=== PATIENT | female | born 1935 | race Caucasian/White ===

== ENCOUNTER 2020-10-13 10:51 | Emergency (ER) | payer MEDICARE ==
[2020-10-13] MEDS ORDERED: Morphine 4 MG/ML VIAL ONE ×2 (11:11→13:45)
[2020-10-13 12:11] LABS: Bilirubin Negative (Negative); Blood, Urine 2+ (Negative); Clarity Clear (Clear); Glucose, Urine (Dipstick) Greater than 1000 mg/dL (Negative); Ketone, Urine 10 mg/dL (Negative); Leukocyte Negative Leu/uL (Negative); Nitrite Negative (Negative); Protein, Urine (Dipstick) Negative (Neg-Trace); Specific Gravity, Urine 1.014 (1.002-1.036); Squamous Epithelial 0-3 HPF (0-3); Urobilinogen Normal mg/dL (Less than 2); WBC/HPF 0-3 HPF (0-3)
[2020-10-13 12:14] LABS: Bacteria/HPF 1+ HPF (None Seen)
[2020-10-13 13:12] LABS: #Lymphocytes 1.3 thou/uL (1.20-3.40); #Monocytes 0.4 thou/uL (0.11-0.59); #Neutrophils 6.1 thou/uL (1.40-6.50); %Basophils 0.3 % (0.0-1.0); %Eosinophils 0.1 % (0.0-10.0); %Lymphocytes 16.5 % (21.0-51.0); %Monocytes 5.4 % (0.0-10.0); %Neutrophils 77.7 % (42.0-75.0); Hemoglobin 14.5 g/dL (12.0-16.0); Mean Corpuscular Hemoglobin 33.4 pg (27.0-31.0); Mean Corpuscular Volume 98.4 fL (78.0-98.0); RBC Distribution Width 12.3 % (11.5-14.5); Red Blood Cell (RBC) Count 4.35 mill/uL (4.20-5.40); White Blood Cell (WBC) Count 7.8 thou/uL (4.8-10.8)
[2020-10-13 13:29] LABS: ALT (SGPT) 32 U/L (8-55); AST (SGOT) 28 U/L (5-34); Albumin 3.4 g/dL (3.4-4.8); Alkaline Phosphatase 143 U/L (40-110); Anion Gap 16 mmol/L (10-20); BUN (Urea Nitrogen) 17 mg/dL (9.8-20.1); Bilirubin, Total 1.5 mg/dL (0.2-1.2); Calc. Creatinine Clearance 0 mL/min (70-130); Calcium 8.3 mg/dL (7.8-10.44); Carbon Dioxide 19 mmol/L (23-31); Globulin 2.7 g/dL (2.4-3.5); Glucose 240 mg/dL (83-110); Lipase 13 U/L (8-78); Protein, Total 6.1 g/dL (5.8-8.1)
[2020-10-13 13:30] LABS: Chloride 109 mmol/L (98-107); Potassium 5.1 mmol/L (3.5-5.1); Sodium 139 mmol/L (136-145)
[2020-10-13 13:40] LABS: MDiff Complete? YES; Mean Platelet Volume 9.7 fL (7.4-10.4); Platelet Count 64 thou/uL (130-400); Platelet Morphology Comment Appears Decreased; Polychromasia SLIGHT = 2-3 cells (100X) (0-2/hpf)
[2020-10-13] MEDS ORDERED: Ondansetron PF 4 MG/2 ML Vial ONE (13:46)
[2020-10-13] MEDS ORDERED: Ketorolac Tromethamine 30 MG/ML VIAL ONE (13:46)
== END 2020-10-13 15:22 | disposition home or self-care (01) ==
LOC: ERS 10:51
DX: N13.2 Hydronephrosis with renal and ureteral calculous obstruction (principal); E11.9 Type 2 diabetes mellitus without complications; R11.2 Nausea with vomiting, unspecified; Z79.4 Long term (current) use of insulin
CPT/HCPCS: 36415; 74176; 80053; 81003; 81015; 83690; 85025; 96374; 96375; 96376; J1885; J2270; J2405

== ENCOUNTER 2020-10-21 10:14 | Outpatient (CLI) | payer MEDICARE ==
[2020-10-21 11:47] LABS: Hemoglobin 14.2 g/dL (12.0-15.5); Mean Corpuscular Hemoglobin 32.5 pg (27.0-33.0); Mean Corpuscular Volume 95.7 fl (81.6-98.3); Mean Platelet Volume 12.3 fl (7.4-10.4); Platelet Count 101 10x3/uL (150-450); RBC Distribution Width 12.8 % (11.5-14.5); Red Blood Cell (RBC) Count 4.37 10x6/uL (3.90-5.03); White Blood Cell (WBC) Count 4.9 10x3/uL (3.5-10.5)
[2020-10-21 12:02] LABS: INR-International Normal Ratio 1.2; PTT 26.2 sec (22.0-33.0); Prothrombin Time 12.8 sec (9.5-12.1)
[2020-10-21 12:12] LABS: Bilirubin Neg (Negative); Blood, Urine 10 (Negative); Clarity Clear (Clear); Glucose, Urine (Dipstick) Normal (Negative); Ketone, Urine Negative (Negative); Leukocyte 25 (Negative); Nitrite Negative (Negative); Protein, Urine (Dipstick) Negative (Neg-Trace); Specific Gravity, Urine 1.015 (1.002-1.036)
[2020-10-21 12:15] LABS: Anion Gap 13 mmol/L (10-20); BUN (Urea Nitrogen) 13 mg/dL (9.8-20.1); Calc. Creatinine Clearance 0 mL/min (70-130); Carbon Dioxide 27 mmol/L (23-31); Chloride 106 mmol/L (98-107); Glucose 151 mg/dL (83-110); Potassium 4.9 mmol/L (3.5-5.1); Sodium 141 mmol/L (136-145)
[2020-10-21 12:40] LABS: RBC/HPF 0-3 HPF (0-3); Squamous Epithelial 0-3 HPF (0-3); WBC/HPF 0-3 HPF (0-3)
[2020-10-21 12:41] LABS: Bacteria/HPF Rare-Few HPF (None Seen)
[2020-10-21 22:36] LABS: SARS-CoV-2 PCR by NAA Not Detected (NotDetected)
== END 2020-10-21 10:15 | disposition home or self-care (01) ==
LOC: LABBT 10:14
PROVIDERS: ATTEND Urology
DX: Z01.818 Encounter for other preprocedural examination (principal); Z20.822 Contact with and (suspected) exposure to COVID-19; N13.2 Hydronephrosis with renal and ureteral calculous obstruction
CPT/HCPCS: 80048; 81001; 85027; 85610; 85730; 87086; 93005; U0003; U0005; 87635; 93010

== ENCOUNTER 2020-10-23 06:22 | Day surgery (SDC) | payer MEDICARE ==
[2020-10-22 11:53] VITALS: BMI 25.9
[2020-10-23] MEDS ORDERED: Levofloxacin 500 mg/D5W 100 ml Premix Bag ONE (06:55)
[2020-10-23] MEDS ORDERED: Iothalamate Meglumine 60% 50 ML VIAL FS ONE (08:17)
[2020-10-23] MEDS ORDERED: B & O ONE (08:17)
[2020-10-23] MEDS ORDERED: Fentanyl 100 MCG/2 ML VIAL ONE (08:20)
[2020-10-23] MEDS ORDERED: Dexamethasone 20 MG/5 ML VIAL ONE (08:46)
[2020-10-23] MEDS ORDERED: PROPOFOL 200 MG/20 ML VIAL ONE (08:46)
[2020-10-23] MEDS ORDERED: PHENYLEPHRINE-NS 100 MCG/ML 10 ML SYRINGE ONE (08:46)
[2020-10-23] MEDS ORDERED: Ondansetron PF 4 MG/2 ML Vial ONE (08:46)
[2020-10-23] MEDS ORDERED: Morphine 2 MG/ML VIAL ONE (10:37)
[2020-10-23] MEDS ORDERED: hydrALAZINE 20 MG/ML VIAL ONE (11:41)
[2020-11-02 18:14] LABS: CA Oxalate Dihydrate 20 % (.); CA Oxalate Monohydrate 80 % (.); Color Brown (.); Stone Weight 4 mg (.)
== END 2020-10-23 12:15 | disposition home or self-care (01) ==
LOC: SDC 06:22
PROVIDERS: ATTEND Urology
PROC: 0TC38ZZ Extirpation of Matter from Right Kidney Pelvis, Via Natural or Artificial Opening Endoscopic (ICD-10-PCS; principal; 2020-10-23)
PROC: 0T768DZ Dilation of Right Ureter with Intraluminal Device, Via Natural or Artificial Opening Endoscopic (ICD-10-PCS; 2020-10-23)
DX: N13.2 Hydronephrosis with renal and ureteral calculous obstruction (principal); E89.0 Postprocedural hypothyroidism; E11.9 Type 2 diabetes mellitus without complications; Z79.4 Long term (current) use of insulin; Z79.899 Other long term (current) drug therapy; Z88.5 Allergy status to narcotic agent; Z88.8 Allergy status to other drugs, medicaments and biological substances; Z95.5 Presence of coronary angioplasty implant and graft
CPT/HCPCS: 52332; 52352; 74420; 82365; 82962; 88300; J2270; Q9961; 36416; J0360; J1100; J1956; J2405; J2704; J3010

== ENCOUNTER 2021-02-14 01:52 | Emergency (ER) | payer MEDICARE | END 2021-02-14 05:10 | disposition home or self-care (01) | LOC: ERS 01:52 | DX: E11.9 Type 2 diabetes mellitus without complications (principal); Z79.4 Long term (current) use of insulin | CPT/HCPCS: 36416; 99283 ==

== ENCOUNTER 2021-07-02 14:20 | Inpatient (IN) | payer MEDICARE ==
[~2021-07-02 14:20] MED LIST: Iopamidol-370 76% 500 ML 1 ML ONE
[2021-07-02 15:28] LABS: #Monocytes 0.5 thou/uL (0.11-0.59); #Neutrophils 2.8 thou/uL (1.40-6.50); %Basophils 0.3 % (0.0-1.0); %Eosinophils 0.8 % (0.0-10.0); %Lymphocytes 36.9 % (21.0-51.0); %Monocytes 9.6 % (0.0-10.0); %Neutrophils 52.4 % (42.0-75.0); Hemoglobin 13.8 g/dL (12.0-16.0); Mean Corpuscular HGB CONC 34.5 g/dL (32.0-36.0); Mean Corpuscular Volume 98.6 fL (78.0-98.0); Mean Platelet Volume 9.6 fL (7.4-10.4); Platelet Count 79 thou/uL (130-400); RBC Distribution Width 12.7 % (11.5-14.5); Red Blood Cell (RBC) Count 4.05 mill/uL (4.20-5.40); White Blood Cell (WBC) Count 5.3 thou/uL (4.8-10.8)
[2021-07-02 15:48] LABS: ALT (SGPT) 42 U/L (8-55); AST (SGOT) 49 U/L (5-34); Albumin 3.3 g/dL (3.4-4.8); Alkaline Phosphatase 229 U/L (40-110); Anion Gap 13 mmol/L (10-20); BUN (Urea Nitrogen) 14 mg/dL (9.8-20.1); Bilirubin, Total 0.7 mg/dL (0.2-1.2); Calc. Creatinine Clearance 0 mL/min (70-130); Calcium 9.1 mg/dL (7.8-10.44); Carbon Dioxide 21 mmol/L (23-31); Chloride 110 mmol/L (98-107); Globulin 3.1 g/dL (2.4-3.5); Glucose 200 mg/dL (83-110); Protein, Total 6.4 g/dL (5.8-8.1); Sodium 140 mmol/L (136-145)
[2021-07-02] MEDS ORDERED: cefTRIAXone\\ROCEPHIN 2 GM VIAL ONE (16:23)
[2021-07-02] MEDS ORDERED: Azithromycin 500 MG VIAL ONE (16:23)
[2021-07-02 17:17] LABS: SARS-CoV-2 NAA Rapid Test Not Detected (NotDetected)
[2021-07-02 18:11] LABS: Troponin I Less than 0.010 ng/mL (< 0.028)
[2021-07-02] MEDS ORDERED: Dextrose 50% Abboject 50 ML SYRINGE SLOW IVP PRN (18:34)
[2021-07-02] MEDS ORDERED: Dextrose 5% in Water 1,000 ML IV PRN (18:34)
[2021-07-02] MEDS ORDERED: Ondansetron ODT 4 MG TAB PO PRN (18:36)
[2021-07-02] MEDS ORDERED: Senokot S 8.6-50 MG TAB PO PRN (18:36)
[2021-07-02] MEDS ORDERED: Acetaminophen 650 MG Suppository PR PRN (18:36)
[2021-07-02] MEDS ORDERED: Albuterol Sulfate 2.5 mg/3 ml Neb NEB PRN (18:43)
[2021-07-02 18:48] LABS: Lactic Acid 2.9 mmol/L (0.5-2.2)
[2021-07-02 21:54] LABS: Troponin I Less than 0.010 ng/mL (< 0.028)
[2021-07-02] MEDS: Enoxaparin Sodium 40 MG/0.4 ML SYRINGE SC SCH (21:54)
[2021-07-02] MEDS: Sodium Chloride 0.9% 1,000 ML IV SCH (21:55)
[2021-07-02] MEDS: Acetaminophen 325 MG TAB PO PRN (21:56)
[2021-07-02] MEDS: Famotidine 20 MG TAB PO SCH (21:56)
[2021-07-02] MEDS: Benzonatate 100 MG CAP PO PRN (21:56)
[2021-07-02] MEDS: guaiFENesin 200 MG TAB PO PRN (21:57)
[2021-07-03 01:25] LABS: Lactic Acid 2.4 mmol/L (0.5-2.2)
[2021-07-03] MEDS: Sodium Chloride 0.9% 1,000 ML IV SCH ×3 (03:51→18:09)
[2021-07-03] MEDS: Acetaminophen 325 MG TAB PO PRN (04:36)
[2021-07-03] MEDS: guaiFENesin 200 MG TAB PO PRN (04:36)
[2021-07-03 05:19] LABS: ALT (SGPT) 35 U/L (8-55); AST (SGOT) 35 U/L (5-34); Albumin 2.8 g/dL (3.4-4.8); Alkaline Phosphatase 163 U/L (40-110); Anion Gap 8 mmol/L (10-20); BUN (Urea Nitrogen) 11 mg/dL (9.8-20.1); Bilirubin, Total 0.5 mg/dL (0.2-1.2); Calc. Creatinine Clearance 62 mL/min (70-130); Calcium 8.1 mg/dL (7.8-10.44); Carbon Dioxide 23 mmol/L (23-31); Chloride 112 mmol/L (98-107); Globulin 2.6 g/dL (2.4-3.5); Glucose 159 mg/dL (83-110); Potassium 4.3 mmol/L (3.5-5.1); Protein, Total 5.4 g/dL (5.8-8.1); Sodium 139 mmol/L (136-145)
[2021-07-03 05:36] LABS: #Lymphocytes 1.3 thou/uL (1.20-3.40); #Monocytes 0.4 thou/uL (0.11-0.59); #Neutrophils 2.3 thou/uL (1.40-6.50); %Basophils 0.2 % (0.0-1.0); %Lymphocytes 32.1 % (21.0-51.0); %Monocytes 8.8 % (0.0-10.0); %Neutrophils 57.9 % (42.0-75.0); Hemoglobin 11.9 g/dL (12.0-16.0); Mean Corpuscular Hemoglobin 33.4 pg (27.0-31.0); Mean Corpuscular Volume 98.5 fL (78.0-98.0); Mean Platelet Volume 10.1 fL (7.4-10.4); Platelet Count 64 thou/uL (130-400); RBC Distribution Width 12.9 % (11.5-14.5); Red Blood Cell (RBC) Count 3.56 mill/uL (4.20-5.40); White Blood Cell (WBC) Count 4.1 thou/uL (4.8-10.8)
[2021-07-03] MEDS: hydrALAZINE 20 MG/ML VIAL SLOW IVP PRN (06:00)
[2021-07-03] MEDS: Enoxaparin Sodium 40 MG/0.4 ML SYRINGE SC SCH (09:33)
[2021-07-03] MEDS: Famotidine 20 MG TAB PO SCH ×2 (09:33→21:30)
[2021-07-03 10:04] LABS: Bacteria/HPF None Seen HPF (None Seen); Bilirubin Negative (Negative); Blood, Urine Negative (Negative); Clarity Clear (Clear); Glucose, Urine (Dipstick) Normal (Negative); Ketone, Urine Negative (Negative); Leukocyte Negative Leu/uL (Negative); Nitrite Negative (Negative); Protein, Urine (Dipstick) Negative (Neg-Trace); RBC/HPF None Seen HPF (0-3); Specific Gravity, Urine 1.014 (1.002-1.036); Squamous Epithelial None Seen HPF (0-3); Urobilinogen Normal mg/dL (Less than 2); WBC/HPF 0-3 HPF (0-3)
[2021-07-03] MEDS: Gabapentin 400 MG CAP PO SCH ×2 (14:27→21:30)
[2021-07-03 15:44] LABS: Lactic Acid 2.6 mmol/L (0.5-2.2)
[2021-07-03] MEDS ORDERED: Sodium Chloride 0.9% 500 ML IV SCH (16:00)
[2021-07-03] MEDS: cefTRIAXone\\ROCEPHIN 1 GM in Sodium Chloride 0.9% 100 ML IVPB SCH (16:10)
[2021-07-03] MEDS: Azithromycin 500 MG in Sodium Chloride 0.9% 250 ML 250 ML IVPB SCH (17:06)
[2021-07-04 05:16] LABS: #Eosinphils 0.1 thou/uL (0.0-0.7); #Lymphocytes 1.1 thou/uL (1.20-3.40); #Monocytes 0.4 thou/uL (0.11-0.59); #Neutrophils 1.8 thou/uL (1.40-6.50); %Basophils 0.3 % (0.0-1.0); %Eosinophils 1.6 % (0.0-10.0); %Lymphocytes 32.8 % (21.0-51.0); %Monocytes 11.5 % (0.0-10.0); %Neutrophils 53.9 % (42.0-75.0); Hemoglobin 11.4 g/dL (12.0-16.0); Mean Corpuscular HGB CONC 34.3 g/dL (32.0-36.0); Mean Corpuscular Hemoglobin 34.1 pg (27.0-31.0); Mean Corpuscular Volume 99.3 fL (78.0-98.0); Mean Platelet Volume 9.7 fL (7.4-10.4); Platelet Count 60 thou/uL (130-400); RBC Distribution Width 12.8 % (11.5-14.5); Red Blood Cell (RBC) Count 3.34 mill/uL (4.20-5.40); White Blood Cell (WBC) Count 3.3 thou/uL (4.8-10.8)
[2021-07-04 05:32] LABS: Anion Gap 8 mmol/L (10-20); BUN (Urea Nitrogen) 11 mg/dL (9.8-20.1); Calc. Creatinine Clearance 74 mL/min (70-130); Calcium 7.8 mg/dL (7.8-10.44); Carbon Dioxide 23 mmol/L (23-31); Chloride 115 mmol/L (98-107); Glucose 145 mg/dL (83-110); Sodium 142 mmol/L (136-145)
[2021-07-04] MEDS ORDERED: Lisinopril 5 MG TAB PO SCH (09:00)
[2021-07-04] MEDS: Lantus 1000 UNITS/10 ML VIAL SC SCH (09:09)
[2021-07-04] MEDS: Gabapentin 400 MG CAP PO SCH ×3 (09:11→20:11)
[2021-07-04] MEDS: Amlodipine 5 MG TAB PO SCH (09:14)
[2021-07-04] MEDS: Famotidine 20 MG TAB PO SCH ×2 (09:14→21:33)
[2021-07-04 09:53] LABS: Reticulocyte Count 2.7 % (0.5-1.5)
[2021-07-04 10:12] LABS: Iron Binding Capacity, Total 229 mcg/dL (265-497)
[2021-07-04 10:13] LABS: Iron 109 ug/dL (50-170)
[2021-07-04 10:38] LABS: Ferritin 151.71 ng/mL (10-291)
[2021-07-04] MEDS: cefTRIAXone\\ROCEPHIN 1 GM in Sodium Chloride 0.9% 100 ML IVPB SCH (15:29)
[2021-07-04] MEDS: Azithromycin 500 MG in Sodium Chloride 0.9% 250 ML 250 ML IVPB SCH (17:39)
[2021-07-04] MEDS: hydrALAZINE 20 MG/ML VIAL SLOW IVP PRN (17:39)
[2021-07-04] MEDS: Acetaminophen 325 MG TAB PO PRN (20:11)
[2021-07-04] MEDS: Benzonatate 100 MG CAP PO PRN (20:12)
[2021-07-04] MEDS: guaiFENesin ER 600 MG TAB PO SCH (20:12)
[2021-07-05 06:03] LABS: ALT (SGPT) 29 U/L (8-55); AST (SGOT) 35 U/L (5-34); Albumin 2.7 g/dL (3.4-4.8); Alkaline Phosphatase 193 U/L (40-110); Bilirubin, Direct 0.2 mg/dL (0.1-0.3); Bilirubin, Total 0.5 mg/dL (0.2-1.2); Protein, Total 5.7 g/dL (5.8-8.1)
[2021-07-05 06:04] LABS: Anion Gap 11 mmol/L (10-20); BUN (Urea Nitrogen) 13 mg/dL (9.8-20.1); Calc. Creatinine Clearance 68 mL/min (70-130); Calcium 8.5 mg/dL (7.8-10.44); Carbon Dioxide 22 mmol/L (23-31); Chloride 108 mmol/L (98-107); Glucose 164 mg/dL (83-110); Potassium 4.7 mmol/L (3.5-5.1); Sodium 136 mmol/L (136-145)
[2021-07-05 06:24] LABS: Hemoglobin 12.8 g/dL (12.0-16.0); Mean Corpuscular HGB CONC 34.4 g/dL (32.0-36.0); Mean Corpuscular Hemoglobin 33.9 pg (27.0-31.0); Mean Corpuscular Volume 98.4 fL (78.0-98.0); Mean Platelet Volume 8.4 fL (7.4-10.4); Platelet Count 55 thou/uL (130-400); RBC Distribution Width 12.8 % (11.5-14.5); Red Blood Cell (RBC) Count 3.77 mill/uL (4.20-5.40); White Blood Cell (WBC) Count 5.8 thou/uL (4.8-10.8)
[2021-07-05] MEDS: hydrALAZINE 20 MG/ML VIAL SLOW IVP PRN (07:44)
[2021-07-05] MEDS: Ondansetron PF 4 MG/2 ML Vial IVP PRN ×3 (09:38→21:24)
[2021-07-05] MEDS: Famotidine 20 MG TAB PO SCH ×2 (09:39→22:31)
[2021-07-05] MEDS: Amlodipine 5 MG TAB PO SCH (09:39)
[2021-07-05] MEDS: Gabapentin 400 MG CAP PO SCH ×3 (09:39→22:31)
[2021-07-05] MEDS: Lantus 1000 UNITS/10 ML VIAL SC SCH (09:40)
[2021-07-05] MEDS: guaiFENesin ER 600 MG TAB PO SCH ×3 (09:40→22:32)
[2021-07-05] MEDS: Benzonatate 100 MG CAP PO PRN (09:44)
[2021-07-05] MEDS: Acetaminophen 325 MG TAB PO PRN (09:51)
[2021-07-05] MEDS ORDERED: Amlodipine 5 MG TAB PO SCH (10:00)
[2021-07-05 12:19] LABS: MDiff Complete? YES
[2021-07-05 12:20] LABS: Band 3 % (5-11); Lymphocytes 30 % (21-51); Monocytes 13 % (0-10); Neutrophil 54 % (42-75); Platelet Morphology Comment Appears Decreased; RBC Morphology Normal
[2021-07-05] MEDS: cefTRIAXone\\ROCEPHIN 1 GM in Sodium Chloride 0.9% 100 ML IVPB SCH (15:36)
[2021-07-05] MEDS ORDERED: hydrALAZINE 25 MG TAB PO SCH (17:00)
[2021-07-05] MEDS: Azithromycin 500 MG in Sodium Chloride 0.9% 250 ML 250 ML IVPB SCH (19:21)
[2021-07-05] MEDS: hydrALAZINE 20 MG/ML VIAL SLOW IVP SCH (20:44)
[2021-07-05] MEDS ORDERED: Ketorolac Tromethamine 30 MG/ML VIAL IVP SCH (21:30)
[2021-07-05] MEDS ORDERED: Morphine 4 MG/ML VIAL SLOW IVP SCH (21:45)
[2021-07-05 22:05] LABS: Troponin I Less than 0.010 ng/mL (< 0.028)
[2021-07-05] MEDS ORDERED: Pantoprazole 40 MG VIAL IVP SCH (22:15)
[2021-07-05] MEDS ORDERED: diphenhydrAMINE 50 MG/ML VIAL ONE (22:24)
[2021-07-06] MEDS ORDERED: Metoprolol Tartrate 5 MG/5 ML VIAL IVP SCH (01:00)
[2021-07-06] MEDS: hydrALAZINE 20 MG/ML VIAL SLOW IVP SCH ×4 (09:49→22:25)
[2021-07-06] MEDS: Amlodipine 10 MG TAB PO SCH (09:49)
[2021-07-06] MEDS: Famotidine 20 MG TAB PO SCH (09:49)
[2021-07-06] MEDS: Gabapentin 400 MG CAP PO SCH (09:49)
[2021-07-06] MEDS: Lantus 1000 UNITS/10 ML VIAL SC SCH (11:57)
[2021-07-06] MEDS: Acetaminophen 325 MG TAB PO PRN ×3 (12:14→21:00)
[2021-07-06] MEDS: Benzonatate 100 MG CAP PO PRN ×3 (12:15→21:01)
[2021-07-06] MEDS: Lidocaine 5% Patch TD SCH (14:26)
[2021-07-06] MEDS: Gabapentin 100 MG CAP PO SCH ×2 (14:26→21:00)
[2021-07-06 14:53] LABS: Anion Gap 12 mmol/L (10-20); BUN (Urea Nitrogen) 23 mg/dL (9.8-20.1); Calc. Creatinine Clearance 51 mL/min (70-130); Calcium 8.9 mg/dL (7.8-10.44); Carbon Dioxide 22 mmol/L (23-31); Chloride 106 mmol/L (98-107); Glucose 228 mg/dL (83-110); Magnesium 1.9 mg/dL (1.6-2.6); Potassium 3.9 mmol/L (3.5-5.1); Sodium 136 mmol/L (136-145)
[2021-07-06] MEDS: cefTRIAXone\\ROCEPHIN 1 GM in Sodium Chloride 0.9% 100 ML IVPB SCH (15:54)
[2021-07-06] MEDS: HumaLOG 300 UNITS/3 ML VIAL SC PRN ×2 (16:47→22:07)
[2021-07-06] MEDS ORDERED: Promethazine HCl 12.5 MG in Sodium Chloride 0.9% 50 ML IVPB PRN (17:36)
[2021-07-06] MEDS: Ondansetron HCl/PF 8 MG in Sodium Chloride 0.9% 50 ML IVPB SCH (21:00)
[2021-07-06] MEDS ORDERED: Ondansetron PF 4 MG/2 ML Vial IVP SCH (21:00)
[2021-07-07] MEDS: Transdermal Patch Removal TOP SCH (03:30)
[2021-07-07] MEDS: HumaLOG 300 UNITS/3 ML VIAL SC PRN ×3 (06:17→21:00)
[2021-07-07] MEDS: hydrALAZINE 20 MG/ML VIAL SLOW IVP SCH ×4 (10:11→20:58)
[2021-07-07] MEDS: Gabapentin 100 MG CAP PO SCH (10:11)
[2021-07-07] MEDS: Pantoprazole 40 MG VIAL IVP SCH (10:11)
[2021-07-07] MEDS: Amlodipine 10 MG TAB PO SCH (10:11)
[2021-07-07 10:17] LABS: #Eosinphils 0.1 thou/uL (0.0-0.7); #Lymphocytes 1.4 thou/uL (1.20-3.40); #Monocytes 0.6 thou/uL (0.11-0.59); #Neutrophils 3.5 thou/uL (1.40-6.50); %Basophils 0.6 % (0.0-1.0); %Eosinophils 1.5 % (0.0-10.0); %Lymphocytes 24.6 % (21.0-51.0); %Neutrophils 62.2 % (42.0-75.0); Hemoglobin 12.1 g/dL (12.0-16.0); Mean Corpuscular HGB CONC 33.8 g/dL (32.0-36.0); Mean Corpuscular Hemoglobin 33.5 pg (27.0-31.0); Mean Corpuscular Volume 99.1 fL (78.0-98.0); Mean Platelet Volume 10.1 fL (7.4-10.4); Platelet Count 76 thou/uL (130-400); RBC Distribution Width 13.3 % (11.5-14.5); Red Blood Cell (RBC) Count 3.63 mill/uL (4.20-5.40); White Blood Cell (WBC) Count 5.7 thou/uL (4.8-10.8)
[2021-07-07 10:21] LABS: Anion Gap 13 mmol/L (10-20); BUN (Urea Nitrogen) 21 mg/dL (9.8-20.1); Calc. Creatinine Clearance 58 mL/min (70-130); Calcium 8.6 mg/dL (7.8-10.44); Carbon Dioxide 24 mmol/L (23-31); Chloride 106 mmol/L (98-107); Glucose 177 mg/dL (83-110); Potassium 4.3 mmol/L (3.5-5.1); Sodium 139 mmol/L (136-145)
[2021-07-07] MEDS: Ondansetron HCl/PF 8 MG in Sodium Chloride 0.9% 50 ML IVPB SCH ×2 (10:33→20:52)
[2021-07-07] MEDS ORDERED: predniSONE 20 MG TAB PO SCH (11:00)
[2021-07-07] MEDS ORDERED: Lorazepam 2 MG/ML VIAL ONE (13:22)
[2021-07-07] MEDS: Lidocaine 5% Patch TD SCH (13:39)
[2021-07-07] MEDS: Benzonatate 100 MG CAP PO PRN (13:41)
[2021-07-07] MEDS ORDERED: Morphine 4 MG/ML VIAL SLOW IVP PRN (13:48)
[2021-07-07] MEDS: Gabapentin 300 MG CAP PO SCH (20:53)
[2021-07-07] MEDS: Sucralfate 1 GM/10 ML UDCUP PO SCH (20:53)
[2021-07-08] MEDS: Transdermal Patch Removal TOP SCH (01:30)
[2021-07-08] MEDS: HumaLOG 300 UNITS/3 ML VIAL SC PRN ×3 (01:30→11:30)
[2021-07-08] MEDS: Sucralfate 1 GM/10 ML UDCUP PO SCH ×2 (09:03→10:34)
[2021-07-08] MEDS: Amlodipine 10 MG TAB PO SCH (09:03)
[2021-07-08] MEDS: Pantoprazole 40 MG VIAL IVP SCH (09:04)
[2021-07-08] MEDS: Gabapentin 300 MG CAP PO SCH (09:04)
[2021-07-08] MEDS: hydrALAZINE 20 MG/ML VIAL SLOW IVP SCH ×2 (10:33→13:35)
[2021-07-08] MEDS: Ondansetron HCl/PF 8 MG in Sodium Chloride 0.9% 50 ML IVPB SCH (10:34)
[2021-07-08 10:45] VITALS: BMI 29.9
[2021-07-08 13:35] VITALS: BP 144/65
[2021-07-08] MEDS: Lidocaine 5% Patch TD SCH (13:35)
[2021-07-08 16:36] VITALS: TEMP 98.7
== END 2021-07-08 16:31 | disposition home or self-care (01) | DRG 204 ==
LOC: ERS 14:20 → ERHOLD 17:06 → 2NO 17:34 → OBSVTOIN 07-05 15:13
PROVIDERS: ADMIT Internal Medicine; ATTEND Internal Medicine
DX: R05.3 Chronic cough (principal); Z20.822 Contact with and (suspected) exposure to COVID-19; K22.4 Dyskinesia of esophagus; E11.65 Type 2 diabetes mellitus with hyperglycemia; D69.6 Thrombocytopenia, unspecified; D53.9 Nutritional anemia, unspecified; K21.9 Gastro-esophageal reflux disease without esophagitis; R03.0 Elevated blood-pressure reading, without diagnosis of hypertension; R91.8 Other nonspecific abnormal finding of lung field; R94.5 Abnormal results of liver function studies; R11.2 Nausea with vomiting, unspecified; E11.40 Type 2 diabetes mellitus with diabetic neuropathy, unspecified; Z88.6 Allergy status to analgesic agent; Z88.5 Allergy status to narcotic agent; Z88.8 Allergy status to other drugs, medicaments and biological substances; Z90.49 Acquired absence of other specified parts of digestive tract; Z87.442 Personal history of urinary calculi; Z90.710 Acquired absence of both cervix and uterus; Z82.3 Family history of stroke; Z82.49 Family history of ischemic heart disease and other diseases of the circulatory system; Z82.0 Family history of epilepsy and other diseases of the nervous system; Z79.899 Other long term (current) drug therapy; Z79.4 Long term (current) use of insulin
CPT/HCPCS: 0240U; 36415; 36416; 70450; 71045; 71275; 74230; 80048; 80053; 80076; 81001; 82607; 82728; 82746; 83540; 83550; 83605; 83735; 84484; 85025; 85046; 87040; 87633; 89220; 93005; 93010; 94640; 96365; 96367; C9113; J0360; J0456; J0696; J1200; J1650; J1815; J2270; J2405; J3490; J7030; J7050; J7512; J7611; J7620; Q0162; Q9967

== ENCOUNTER 2021-12-27 09:30 | Outpatient (CLI) | payer MEDICARE | END 2021-12-27 09:31 | disposition home or self-care (01) | LOC: ULT 09:30 | PROVIDERS: ATTEND Internal Medicine Hematology & Oncology | DX: R16.1 Splenomegaly, not elsewhere classified (principal); D69.59 Other secondary thrombocytopenia; K74.69 Other cirrhosis of liver; R93.2 Abnormal findings on diagnostic imaging of liver and biliary tract | CPT/HCPCS: 76700 ==

== ENCOUNTER 2022-02-16 09:01 | Emergency (ER) | payer OTHER ==
[2022-02-16] MEDS ORDERED: Morphine 4 MG/ML VIAL ONE (09:43)
[2022-02-16] MEDS ORDERED: Ondansetron PF 4 MG/2 ML Vial ONE (09:44)
[2022-02-16] MEDS ORDERED: Ketorolac Tromethamine 30 MG/ML VIAL ONE (09:44)
[2022-02-16] MEDS ORDERED: Ondansetron ODT 4 MG TAB ONE (09:56)
== END 2022-02-16 12:51 | disposition home or self-care (01) ==
LOC: ERS 09:01
DX: S80.02XA Contusion of left knee, initial encounter (principal); M54.2 Cervicalgia; M25.511 Pain in right shoulder; I10 Essential (primary) hypertension; E11.9 Type 2 diabetes mellitus without complications; W01.198A Fall on same level from slipping, tripping and stumbling with subsequent striking against other object, initial encounter; Y92.69 Other specified industrial and construction area as the place of occurrence of the external cause; Z79.4 Long term (current) use of insulin; Z79.899 Other long term (current) drug therapy
CPT/HCPCS: 71045; 72125; 96372; J1885; J2270; J2405; Q0162

== ENCOUNTER 2022-04-05 18:01 | Inpatient (IN) | payer OTHER ==
[2022-04-05 18:46] LABS: #Lymphocytes 1.1 thou/uL (1.20-3.40); #Monocytes 0.7 thou/uL (0.11-0.59); #Neutrophils 8.8 thou/uL (1.40-6.50); %Eosinophils 0.1 % (0.0-10.0); %Lymphocytes 10.3 % (21.0-51.0); %Monocytes 6.5 % (0.0-10.0); %Neutrophils 83.2 % (42.0-75.0); Hemoglobin 14.7 g/dL (12.0-16.0); Mean Corpuscular HGB CONC 32.8 g/dL (32.0-36.0); Mean Corpuscular Hemoglobin 32.9 pg (27.0-31.0); Platelet Count 56 thou/uL (130-400); Red Blood Cell (RBC) Count 4.48 mill/uL (4.20-5.40); White Blood Cell (WBC) Count 10.6 thou/uL (4.8-10.8)
[2022-04-05 19:14] LABS: ALT (SGPT) 52 U/L (8-55); AST (SGOT) 44 U/L (5-34); Albumin 3.6 g/dL (3.4-4.8); Alkaline Phosphatase 140 U/L (40-110); Anion Gap 16 mmol/L (10-20); BUN (Urea Nitrogen) 22 mg/dL (9.8-20.1); Bilirubin, Total 1.7 mg/dL (0.2-1.2); CK (CPK) 260 U/L (29-168); Calc. Creatinine Clearance 0 mL/min (70-130); Calcium 8.7 mg/dL (7.8-10.44); Carbon Dioxide 22 mmol/L (23-31); Chloride 108 mmol/L (98-107); Estimated GFR 59; Globulin 2.7 g/dL (2.4-3.5); Glucose 112 mg/dL (83-110); Potassium 4.7 mmol/L (3.5-5.1); Protein, Total 6.3 g/dL (5.8-8.1); Sodium 141 mmol/L (136-145)
[2022-04-05] MEDS ORDERED: Acetaminophen 500 MG TAB ONE (19:36)
[2022-04-05] MEDS ORDERED: Fentanyl 100 MCG/2 ML VIAL ONE (19:36)
[2022-04-05] MEDS ORDERED: Ondansetron PF 4 MG/2 ML Vial IVP PRN (20:30)
[2022-04-05] MEDS ORDERED: Acetaminophen 325 MG TAB PO PRN (20:30)
[2022-04-05] MEDS ORDERED: Ondansetron ODT 4 MG TAB SL PRN (20:30)
[2022-04-05] MEDS ORDERED: Sodium Chloride 0.9% 1,000 ML IV SCH (20:30)
[2022-04-05] MEDS ORDERED: Dextrose 50% Abboject 50 ML SYRINGE SLOW IVP PRN (20:51)
[2022-04-05] MEDS ORDERED: Bisacodyl 5 MG TAB PO PRN (20:51)
[2022-04-05] MEDS ORDERED: HumaLOG 300 UNITS/3 ML VIAL SC PRN (20:51)
[2022-04-05] MEDS ORDERED: Dextrose 5% in Water 1,000 ML IV PRN (20:51)
[2022-04-05] MEDS ORDERED: Famotidine 20 MG TAB PO SCH (21:00)
[2022-04-05 22:11] VITALS: BMI 25.7
[2022-04-05] MEDS: Nicotine 21 MG PATCH TD SCH (22:41)
[2022-04-05] MEDS ORDERED: HUMULIN R SC PRN (23:39)
[2022-04-06] MEDS: Zolpidem Tartrate 5 MG TAB PO PRN ×2 (00:10→20:48)
[2022-04-06] MEDS: Fentanyl 100 MCG/2 ML VIAL SLOW IVP PRN ×3 (00:10→13:29)
[2022-04-06] MEDS ORDERED: Gabapentin 400 MG CAP PO SCH (00:30)
[2022-04-06] MEDS ORDERED: Gabapentin 300 MG CAP PO SCH (03:30)
[2022-04-06 04:52] LABS: #Lymphocytes 1.9 thou/uL (1.20-3.40); #Monocytes 0.6 thou/uL (0.11-0.59); #Neutrophils 5.6 thou/uL (1.40-6.50); %Basophils 0.1 % (0.0-1.0); %Eosinophils 0.3 % (0.0-10.0); %Lymphocytes 23.2 % (21.0-51.0); %Monocytes 7.1 % (0.0-10.0); %Neutrophils 69.2 % (42.0-75.0); Hemoglobin 11.8 g/dL (12.0-16.0); Mean Corpuscular HGB CONC 32.2 g/dL (32.0-36.0); Mean Corpuscular Hemoglobin 32.2 pg (27.0-31.0); Mean Corpuscular Volume 99.9 fL (78.0-98.0); Mean Platelet Volume 11.5 fL (7.4-10.4); Platelet Count 46 thou/uL (130-400); RBC Distribution Width 14.1 % (11.5-14.5); Red Blood Cell (RBC) Count 3.68 mill/uL (4.20-5.40)
[2022-04-06 05:03] LABS: Albumin 2.8 g/dL (3.4-4.8); Anion Gap 11 mmol/L (10-20); BUN (Urea Nitrogen) 21 mg/dL (9.8-20.1); BUN/Creatinine Ratio 23.86; Calc. Creatinine Clearance 52 mL/min (70-130); Calcium 7.5 mg/dL (7.8-10.44); Carbon Dioxide 21 mmol/L (23-31); Chloride 111 mmol/L (98-107); Estimated GFR 64; Glucose 100 mg/dL (83-110); Phosphorus 3.2 mg/dL (2.3-4.7); Potassium 4.3 mmol/L (3.5-5.1); Sodium 139 mmol/L (136-145)
[2022-04-06 07:33] LABS: Bacteria/HPF None Seen HPF (None Seen); Bilirubin Negative (Negative); Blood, Urine Negative (Negative); Clarity Clear (Clear); Glucose, Urine (Dipstick) Normal (Negative); Ketone, Urine Negative (Negative); Leukocyte 25 Leu/uL (Negative); Nitrite Negative (Negative); Protein, Urine (Dipstick) Negative (Neg-Trace); RBC/HPF 0-3 HPF (0-3); Specific Gravity, Urine 1.017 (1.002-1.036); Squamous Epithelial 0-3 HPF (0-3); Urobilinogen Normal mg/dL (Less than 2); WBC/HPF 0-3 HPF (0-3)
[2022-04-06 07:43] LABS: Urine Culture Reflex Yes Yes
[2022-04-06] MEDS: Gabapentin 400 MG CAP PO SCH ×3 (08:08→20:47)
[2022-04-06] MEDS: Amlodipine 10 MG TAB PO SCH (08:09)
[2022-04-06] MEDS: Enoxaparin Sodium 30 MG/0.3 ML SYRINGE SC SCH (08:09)
[2022-04-06] MEDS: Famotidine 20 MG TAB PO SCH (08:09)
[2022-04-06] MEDS: Insulin Glargine 30 UNITS/0.3 ML VIAL SC SCH (08:16)
[2022-04-06] MEDS ORDERED: Iopamidol-370 76% 500 ML 1 ML ONE (15:00)
[2022-04-06] MEDS: Nicotine 21 MG PATCH TD SCH (20:45)
[2022-04-07 04:52] LABS: ALT (SGPT) 34 U/L (8-55); AST (SGOT) 28 U/L (5-34); Albumin 2.8 g/dL (3.4-4.8); Alkaline Phosphatase 100 U/L (40-110); Anion Gap 7 mmol/L (10-20); BUN (Urea Nitrogen) 21 mg/dL (9.8-20.1); Bilirubin, Total 1.3 mg/dL (0.2-1.2); CK (CPK) 88 U/L (29-168); Calc. Creatinine Clearance 44 mL/min (70-130); Calcium 7.9 mg/dL (7.8-10.44); Carbon Dioxide 25 mmol/L (23-31); Chloride 110 mmol/L (98-107); Estimated GFR 53; Globulin 2.3 g/dL (2.4-3.5); Glucose 161 mg/dL (83-110); Potassium 4.1 mmol/L (3.5-5.1); Protein, Total 5.1 g/dL (5.8-8.1); Sodium 138 mmol/L (136-145)
[2022-04-07 05:15] LABS: #Lymphocytes 1.7 thou/uL (1.20-3.40); #Monocytes 0.5 thou/uL (0.11-0.59); #Neutrophils 2.7 thou/uL (1.40-6.50); %Basophils 0.2 % (0.0-1.0); %Eosinophils 0.8 % (0.0-10.0); %Lymphocytes 34.1 % (21.0-51.0); %Monocytes 9.2 % (0.0-10.0); %Neutrophils 55.6 % (42.0-75.0); Hemoglobin 12.7 g/dL (12.0-16.0); Mean Corpuscular HGB CONC 32.7 g/dL (32.0-36.0); Platelet Count 49 thou/uL (130-400); RBC Distribution Width 13.8 % (11.5-14.5); Red Blood Cell (RBC) Count 3.86 mill/uL (4.20-5.40); White Blood Cell (WBC) Count 4.9 thou/uL (4.8-10.8)
[2022-04-07] MEDS: Gabapentin 400 MG CAP PO SCH ×3 (09:26→21:30)
[2022-04-07] MEDS: Insulin Glargine 30 UNITS/0.3 ML VIAL SC SCH (09:26)
[2022-04-07] MEDS: Enoxaparin Sodium 30 MG/0.3 ML SYRINGE SC SCH (09:26)
[2022-04-07] MEDS: Amlodipine 10 MG TAB PO SCH (09:26)
[2022-04-07] MEDS: Famotidine 20 MG TAB PO SCH (09:27)
[2022-04-07 10:29] LABS: Hemoglobin A1c 6.3 % (4.0-6.0)
[2022-04-07] MEDS: HumaLOG 300 UNITS/3 ML VIAL SC PRN (11:33)
[2022-04-07] MEDS ORDERED: Acetaminophen 325 MG/10.15 ML UDCUP PO PRN (18:13)
[2022-04-07] MEDS: Acetaminophen 325 MG TAB PO PRN (18:50)
[2022-04-07] MEDS ORDERED: Pramipexole Di-HCl 1 MG TAB PO SCH (19:45)
[2022-04-07] MEDS: Nicotine 21 MG PATCH TD SCH (19:58)
[2022-04-07] MEDS: Zolpidem Tartrate 5 MG TAB PO PRN (21:30)
[2022-04-08 04:15] LABS: #Lymphocytes 1.1 thou/uL (1.20-3.40); #Monocytes 0.4 thou/uL (0.11-0.59); #Neutrophils 3.8 thou/uL (1.40-6.50); %Basophils 0.1 % (0.0-1.0); %Eosinophils 0.7 % (0.0-10.0); %Lymphocytes 20.7 % (21.0-51.0); %Monocytes 6.9 % (0.0-10.0); %Neutrophils 71.5 % (42.0-75.0); Hemoglobin 13.1 g/dL (12.0-16.0); Mean Corpuscular HGB CONC 32.6 g/dL (32.0-36.0); Mean Corpuscular Hemoglobin 32.6 pg (27.0-31.0); Mean Corpuscular Volume 99.9 fL (78.0-98.0); Mean Platelet Volume 10.8 fL (7.4-10.4); Platelet Count 51 thou/uL (130-400); RBC Distribution Width 13.4 % (11.5-14.5); Red Blood Cell (RBC) Count 4.02 mill/uL (4.20-5.40); White Blood Cell (WBC) Count 5.3 thou/uL (4.8-10.8)
[2022-04-08 04:29] LABS: ALT (SGPT) 32 U/L (8-55); AST (SGOT) 27 U/L (5-34); Albumin 2.9 g/dL (3.4-4.8); Alkaline Phosphatase 104 U/L (40-110); Anion Gap 12 mmol/L (10-20); BUN (Urea Nitrogen) 25 mg/dL (9.8-20.1); Bilirubin, Total 1.2 mg/dL (0.2-1.2); CK (CPK) 34 U/L (29-168); Calc. Creatinine Clearance 49 mL/min (70-130); Carbon Dioxide 21 mmol/L (23-31); Chloride 106 mmol/L (98-107); Estimated GFR 61; Globulin 2.4 g/dL (2.4-3.5); Glucose 163 mg/dL (83-110); Potassium 4.1 mmol/L (3.5-5.1); Protein, Total 5.3 g/dL (5.8-8.1); Sodium 135 mmol/L (136-145)
[2022-04-08] MEDS: Insulin Glargine 30 UNITS/0.3 ML VIAL SC SCH (08:32)
[2022-04-08] MEDS: Famotidine 20 MG TAB PO SCH (08:32)
[2022-04-08] MEDS: Gabapentin 400 MG CAP PO SCH ×3 (08:32→20:55)
[2022-04-08] MEDS: Amlodipine 10 MG TAB PO SCH (08:32)
[2022-04-08] MEDS: Enoxaparin Sodium 30 MG/0.3 ML SYRINGE SC SCH (08:33)
[2022-04-08] MEDS: Nicotine 21 MG PATCH TD SCH (20:35)
[2022-04-09 04:54] LABS: #Basophils 0.1 thou/uL (0.0-0.2); #Eosinphils 0.1 thou/uL (0.0-0.7); #Lymphocytes 2.2 thou/uL (1.20-3.40); #Monocytes 0.5 thou/uL (0.11-0.59); #Neutrophils 2.3 thou/uL (1.40-6.50); %Basophils 1.5 % (0.0-1.0); %Eosinophils 1.5 % (0.0-10.0); %Lymphocytes 43.2 % (21.0-51.0); %Neutrophils 44.9 % (42.0-75.0); Hemoglobin 13.8 g/dL (12.0-16.0); Mean Corpuscular HGB CONC 33.5 g/dL (32.0-36.0); Mean Corpuscular Hemoglobin 33.5 pg (27.0-31.0); Platelet Count 68 thou/uL (130-400); RBC Distribution Width 13.7 % (11.5-14.5); Red Blood Cell (RBC) Count 4.13 mill/uL (4.20-5.40); White Blood Cell (WBC) Count 5.2 thou/uL (4.8-10.8)
[2022-04-09 05:16] LABS: ALT (SGPT) 34 U/L (8-55); AST (SGOT) 32 U/L (5-34); Albumin 2.9 g/dL (3.4-4.8); Alkaline Phosphatase 93 U/L (40-110); Anion Gap 10 mmol/L (10-20); BUN (Urea Nitrogen) 23 mg/dL (9.8-20.1); Bilirubin, Total 1.5 mg/dL (0.2-1.2); CK (CPK) 20 U/L (29-168); Calc. Creatinine Clearance 40 mL/min (70-130); Calcium 8.2 mg/dL (7.8-10.44); Carbon Dioxide 25 mmol/L (23-31); Chloride 107 mmol/L (98-107); Estimated GFR 49; Globulin 2.6 g/dL (2.4-3.5); Glucose 79 mg/dL (83-110); Potassium 4.8 mmol/L (3.5-5.1); Protein, Total 5.5 g/dL (5.8-8.1); Sodium 137 mmol/L (136-145)
[2022-04-09] MEDS: Famotidine 20 MG TAB PO SCH (09:53)
[2022-04-09] MEDS: Gabapentin 400 MG CAP PO SCH ×3 (09:54→20:06)
[2022-04-09] MEDS: Amlodipine 10 MG TAB PO SCH (09:54)
[2022-04-09] MEDS: Insulin Glargine 30 UNITS/0.3 ML VIAL SC SCH (09:55)
[2022-04-09] MEDS ORDERED: Ondansetron PF 4 MG/2 ML Vial IVP PRN (16:18)
[2022-04-09] MEDS: Atorvastatin Calcium 20 MG TAB PO SCH (20:06)
[2022-04-10] MEDS: Amlodipine 10 MG TAB PO SCH (10:18)
[2022-04-10] MEDS: Gabapentin 400 MG CAP PO SCH ×3 (10:18→20:35)
[2022-04-10] MEDS: Insulin Glargine 30 UNITS/0.3 ML VIAL SC SCH (10:19)
[2022-04-10] MEDS: Famotidine 20 MG TAB PO SCH (10:19)
[2022-04-10] MEDS: Acetaminophen 325 MG TAB PO PRN (14:43)
[2022-04-10] MEDS: Atorvastatin Calcium 20 MG TAB PO SCH (20:35)
[2022-04-11] MEDS: Acetaminophen 325 MG TAB PO PRN (06:47)
[2022-04-11] MEDS: Gabapentin 400 MG CAP PO SCH ×2 (10:37→14:27)
[2022-04-11] MEDS: Insulin Glargine 30 UNITS/0.3 ML VIAL SC SCH (10:38)
[2022-04-11] MEDS: Amlodipine 10 MG TAB PO SCH (10:38)
[2022-04-11] MEDS: Famotidine 20 MG TAB PO SCH (10:38)
[2022-04-11 11:40] VITALS: BP 121/59; TEMP 97.6
[2022-04-11] MEDS: HumaLOG 300 UNITS/3 ML VIAL SC PRN (14:39)
== END 2022-04-11 15:53 | DRG 178 ==
LOC: ERS 18:01 → 2NO 20:17
PROVIDERS: ADMIT Internal Medicine; ATTEND Internal Medicine
DX: J69.0 Pneumonitis due to inhalation of food and vomit (principal); M62.82 Rhabdomyolysis; R55 Syncope and collapse; E11.65 Type 2 diabetes mellitus with hyperglycemia; Z20.822 Contact with and (suspected) exposure to COVID-19; D69.6 Thrombocytopenia, unspecified; I10 Essential (primary) hypertension; M48.00 Spinal stenosis, site unspecified; E78.5 Hyperlipidemia, unspecified; K74.60 Unspecified cirrhosis of liver; I25.10 Atherosclerotic heart disease of native coronary artery without angina pectoris; R29.6 Repeated falls; Z95.5 Presence of coronary angioplasty implant and graft; Z88.5 Allergy status to narcotic agent; Z88.8 Allergy status to other drugs, medicaments and biological substances; Z79.4 Long term (current) use of insulin; Z79.899 Other long term (current) drug therapy; Z90.49 Acquired absence of other specified parts of digestive tract; Z90.710 Acquired absence of both cervix and uterus; Z98.890 Other specified postprocedural states
CPT/HCPCS: 36415; 36416; 70450; 71045; 71275; 72148; 72192; 80053; 80069; 81001; 82550; 83036; 83880; 84443; 84484; 85025; 87040; 87086; 93005; 93306; 93880; 96374; 96375; J1815; J1956; J3010; J7050; Q9967; U0003; U0005

== ENCOUNTER 2023-11-06 18:09 | Inpatient (IN) | payer OTHER ==
[2023-11-06 18:45] LABS: #Basophils Less than 0.03 10x3/uL (0.0-0.2); %Basophils 0.3 % (0.0-1.0); %Eosinophils 1.2 % (0.0-10.0); %Lymphocytes 24.2 % (21.0-51.0); %Neutrophils 65.1 % (42.0-75.0); Hematocrit 43.5 % (36.0-47.0); Hemoglobin 14.5 g/dL (12.0-16.0); Mean Corpuscular HGB CONC 33.3 g/dL (32.0-36.0); Mean Corpuscular Hemoglobin 32.3 pg (27.0-31.0); Mean Corpuscular Volume 96.9 fL (78.0-98.0); Mean Platelet Volume 12.5 fL (7.4-10.4); Platelet Count 64 10x3/uL (130-400); RBC Distribution Width 13.7 % (11.5-14.5); Red Blood Cell (RBC) Count 4.49 mill/uL (4.20-5.40)
[2023-11-06 19:08] LABS: Globulin 3.1 g/dL (2.4-3.5)
[2023-11-06 19:13] LABS: ALT (SGPT) 34 U/L (8-55); AST (SGOT) 37 U/L (5-34); Albumin 3.5 g/dL (3.4-4.8); Alkaline Phosphatase 156 U/L (40-110); Anion Gap 19 mmol/L (10-20); BUN (Urea Nitrogen) 20 mg/dL (9.8-20.1); Bilirubin, Total 0.8 mg/dL (0.2-1.2); CK (CPK) 34 U/L (29-168); Calc. Creatinine Clearance 0 mL/min (70-130); Calcium 9.2 mg/dL (7.8-10.44); Carbon Dioxide 19 mmol/L (23-31); Chloride 109 mmol/L (98-107); Estimated GFR 42; Glucose 170 mg/dL (83-110); Lipase 25 U/L (8-78); Magnesium 2.4 mg/dL (1.6-2.6); Potassium 4.5 mmol/L (3.5-5.1); Protein, Total 6.6 g/dL (5.8-8.1); Sodium 142 mmol/L (136-145)
[2023-11-06 19:15] LABS: Troponin I Less than 0.010 ng/mL (< 0.028)
[2023-11-06 19:21] LABS: Platelet Adequacy Comment Platelets Decreased; RBC Morphology Within Normal Limits
[2023-11-06 20:09] LABS: Bilirubin Negative (Negative); Blood, Urine Negative (Negative); CAUTI Indications for Culture Alt mental st,lethar; Clarity Clear (Clear); Glucose, Urine (Dipstick) Greater than 1000 mg/dL (Negative); Ketone, Urine Negative (Negative); Leukocyte Negative Leu/uL (Negative); Nitrite Negative (Negative); Protein, Urine (Dipstick) Negative (Neg-Trace); RBC/HPF 0-3 HPF (0-3); Specific Gravity, Urine 1.031 (1.002-1.036); Squamous Epithelial 0-3 HPF (0-3); Urobilinogen Normal mg/dL (Less than 2); WBC/HPF None Seen HPF (0-3)
[2023-11-06 20:16] LABS: Bacteria/HPF 1+ HPF (None Seen)
[2023-11-06 20:17] LABS: Urine Culture Reflex No No
[2023-11-06] MEDS ORDERED: Cefepime 2 GM VIAL ONE (20:36)
[2023-11-06] MEDS ORDERED: Sodium Chloride 0.9% 100 ML ONE (20:36)
[2023-11-06] MEDS ORDERED: Aspirin Chewable 81 MG TAB ONE (21:54)
[2023-11-06] MEDS ORDERED: Labetalol HCl 100 MG/20 ML VIAL SLOW IVP PRN (22:16)
[2023-11-06] MEDS ORDERED: Ondansetron PF 4 MG/2 ML Vial IVP PRN (22:16)
[2023-11-06] MEDS ORDERED: hydrALAZINE 20 MG/ML VIAL SLOW IVP PRN (22:16)
[2023-11-06] MEDS ORDERED: Dextrose 50% Abboject 50 ML SYRINGE SLOW IVP PRN (22:18)
[2023-11-06] MEDS ORDERED: Glucagon 1 MG/ML KIT IM PRN (22:18)
[2023-11-06] MEDS ORDERED: Dextrose 5% in Water 1,000 ML IV PRN (22:18)
[2023-11-07] MEDS: Vancomycin (BATCH) 1.75 GM in Premix 1 BAG IVPB SCH (00:09)
[2023-11-07] MEDS ORDERED: Acetaminophen 325 MG TAB ONE ×2 (03:04→09:33)
[2023-11-07] MEDS ORDERED: Morphine 2 MG/ML VIAL ONE (05:30)
[2023-11-07 08:53] LABS: #Basophils Less than 0.03 10x3/uL (0.0-0.2); %Basophils 0.2 % (0.0-1.0); %Eosinophils 1.3 % (0.0-10.0); %Lymphocytes 22.1 % (21.0-51.0); %Monocytes 8.6 % (0.0-10.0); %Neutrophils 67.4 % (42.0-75.0); Hematocrit 37.4 % (36.0-47.0); Hemoglobin 12.4 g/dL (12.0-16.0); Mean Corpuscular HGB CONC 33.2 g/dL (32.0-36.0); Mean Corpuscular Hemoglobin 32.4 pg (27.0-31.0); Mean Corpuscular Volume 97.7 fL (78.0-98.0); Mean Platelet Volume 12.2 fL (7.4-10.4); Platelet Count 48 10x3/uL (130-400); RBC Distribution Width 13.2 % (11.5-14.5); Red Blood Cell (RBC) Count 3.83 mill/uL (4.20-5.40)
[2023-11-07] MEDS ORDERED: Gabapentin 400 MG CAP ONE (09:33)
[2023-11-07] MEDS ORDERED: Pantoprazole DR 40 MG TAB ONE (09:33)
[2023-11-07] MEDS: Gabapentin 400 MG CAP PO SCH (10:28)
[2023-11-07] MEDS: Acetaminophen 325 MG TAB PO PRN (10:29)
[2023-11-07] MEDS: Pantoprazole DR 40 MG TAB PO SCH (10:29)
[2023-11-07] MEDS: Amlodipine 10 MG TAB PO SCH (10:29)
[2023-11-07] MEDS: Lactated Ringer's 1,000 ML IV SCH (10:30)
[2023-11-07 10:39] LABS: Lactic Acid 2.2 mmol/L (0.5-2.2)
[2023-11-07 10:51] LABS: Bacteria/HPF 1+ HPF (None Seen); Bilirubin Negative (Negative); Blood, Urine Negative (Negative); Clarity Clear (Clear); Glucose, Urine (Dipstick) Greater than 1000 mg/dL (Negative); Ketone, Urine Negative (Negative); Leukocyte Negative Leu/uL (Negative); Nitrite Negative (Negative); Protein, Urine (Dipstick) Negative (Neg-Trace); RBC/HPF 0-3 HPF (0-3); Specific Gravity, Urine 1.035 (1.002-1.036); Squamous Epithelial 0-3 HPF (0-3); Urobilinogen Normal mg/dL (Less than 2); WBC/HPF 0-3 HPF (0-3); Yeast-Budding Rare HPF (None Seen)
[2023-11-07 11:54] LABS: Lactic Acid 2.4 mmol/L (0.5-2.2)
[2023-11-07 11:55] LABS: Anion Gap 16 mmol/L (10-20); BUN (Urea Nitrogen) 18 mg/dL (9.8-20.1); Calc. Creatinine Clearance 0 mL/min (70-130); Carbon Dioxide 17 mmol/L (23-31); Chloride 111 mmol/L (98-107); Estimated GFR 57; Glucose 167 mg/dL (83-110); Potassium 4.8 mmol/L (3.5-5.1); Sodium 139 mmol/L (136-145)
[2023-11-07 11:56] LABS: Calcium 7.8 mg/dL (7.6-10.4)
[2023-11-07 13:16] LABS: Lactic Acid 2.4 mmol/L (0.5-2.2)
[2023-11-07 14:07] LABS: Hemoglobin A1c 7.4 % (4.0-6.0)
[2023-11-07 15:43] VITALS: BMI 25.5
[2023-11-07] MEDS: traMADol HCl 50 MG TAB PO PRN (16:28)
[2023-11-07] MEDS: Acetaminophen 325 MG TAB PO SCH (21:10)
[2023-11-07] MEDS: Atorvastatin Calcium 20 MG TAB PO SCH (21:10)
[2023-11-08 05:06] LABS: #Basophils Less than 0.03 10x3/uL (0.0-0.2); %Basophils 0.3 % (0.0-1.0); %Eosinophils 1.6 % (0.0-10.0); %Lymphocytes 32.2 % (21.0-51.0); %Monocytes 9.2 % (0.0-10.0); %Neutrophils 56.4 % (42.0-75.0); Hematocrit 36.8 % (36.0-47.0); Hemoglobin 12.4 g/dL (12.0-16.0); Mean Corpuscular HGB CONC 33.7 g/dL (32.0-36.0); Mean Corpuscular Hemoglobin 32.4 pg (27.0-31.0); Mean Corpuscular Volume 96.1 fL (78.0-98.0); Mean Platelet Volume 12.9 fL (7.4-10.4); Platelet Count 49 10x3/uL (130-400); RBC Distribution Width 13.2 % (11.5-14.5); Red Blood Cell (RBC) Count 3.83 mill/uL (4.20-5.40)
[2023-11-08 05:10] LABS: Anion Gap 12 mmol/L (10-20); BUN (Urea Nitrogen) 15 mg/dL (9.8-20.1); Calc. Creatinine Clearance 51 mL/min (70-130); Calcium 7.9 mg/dL (7.8-10.44); Carbon Dioxide 19 mmol/L (23-31); Chloride 110 mmol/L (98-107); Estimated GFR 66; Glucose 147 mg/dL (83-110); Potassium 4.1 mmol/L (3.5-5.1); Sodium 137 mmol/L (136-145)
[2023-11-08] MEDS ORDERED: Insulin Glargine 30 UNITS/0.3 ML VIAL SC SCH (09:00)
[2023-11-08] MEDS: Insulin Glargine 30 UNITS/0.3 ML VIAL SC SCH (09:38)
[2023-11-08] MEDS: Aspirin 81 mg Enteric Coated Tablet PO SCH (09:38)
[2023-11-08] MEDS: Methocarbamol 500 MG TAB PO SCH (18:04)
[2023-11-08] MEDS: Melatonin 3 MG TAB PO SCH (23:19)
[2023-11-09 04:23] LABS: #Basophils Less than 0.03 10x3/uL (0.0-0.2); %Basophils 0.2 % (0.0-1.0); %Eosinophils 2.1 % (0.0-10.0); %Lymphocytes 40.9 % (21.0-51.0); %Monocytes 12.1 % (0.0-10.0); %Neutrophils 44.5 % (42.0-75.0); Hematocrit 37.2 % (36.0-47.0); Hemoglobin 12.6 g/dL (12.0-16.0); Mean Corpuscular HGB CONC 33.9 g/dL (32.0-36.0); Mean Corpuscular Hemoglobin 33.1 pg (27.0-31.0); Mean Corpuscular Volume 97.6 fL (78.0-98.0); Mean Platelet Volume 12.1 fL (7.4-10.4); Platelet Count 65 10x3/uL (130-400); RBC Distribution Width 13.2 % (11.5-14.5); Red Blood Cell (RBC) Count 3.81 mill/uL (4.20-5.40)
[2023-11-09 04:35] LABS: Anion Gap 13 mmol/L (10-20); BUN (Urea Nitrogen) 16 mg/dL (9.8-20.1); Calc. Creatinine Clearance 45 mL/min (70-130); Calcium 8.6 mg/dL (7.8-10.44); Carbon Dioxide 25 mmol/L (23-31); Chloride 110 mmol/L (98-107); Estimated GFR 57; Glucose 159 mg/dL (83-110); Potassium 5.6 mmol/L (3.5-5.1); Sodium 142 mmol/L (136-145)
[2023-11-09] MEDS: Sodium Polystyrene Sulfonate 15 GM (60 mL) BOT PO SCH (18:16)
[2023-11-09] MEDS: Insulin Regular 300 UNITS/3 ML VIAL IVP SCH (18:16)
[2023-11-09] MEDS: Dextrose 50% Abboject 50 ML SYRINGE SLOW IVP SCH (18:17)
[2023-11-09] MEDS: Albuterol 2.5 MG (3 mL) NEB NEB SCH (18:38)
[2023-11-10 04:52] LABS: Anion Gap 13 mmol/L (10-20); BUN (Urea Nitrogen) 18 mg/dL (9.8-20.1); Calc. Creatinine Clearance 45 mL/min (70-130); Calcium 8.3 mg/dL (7.8-10.44); Carbon Dioxide 23 mmol/L (23-31); Chloride 109 mmol/L (98-107); Estimated GFR 57; Glucose 175 mg/dL (83-110); Sodium 140 mmol/L (136-145)
[2023-11-10] MEDS: HumaLOG 300 UNITS/3 ML VIAL SC PRN ×2 (12:03→20:37)
[2023-11-10] MEDS: Melatonin 3 MG TAB PO PRN (20:38)
[2023-11-10] MEDS: Senokot S 8.6-50 MG TAB PO PRN (20:38)
[2023-11-11] MEDS: Polyethylene Glycol 3350 17 GM Packet PO PRN (11:08)
[2023-11-11] MEDS: Morphine 2 MG/ML VIAL SLOW IVP PRN (12:37)
[2023-11-12 04:33] LABS: #Basophils Less than 0.03 10x3/uL (0.0-0.2); %Basophils 0.4 % (0.0-1.0); %Eosinophils 2.3 % (0.0-10.0); %Lymphocytes 42.3 % (21.0-51.0); %Monocytes 9.8 % (0.0-10.0); Hematocrit 38.1 % (36.0-47.0); Hemoglobin 12.7 g/dL (12.0-16.0); Mean Corpuscular HGB CONC 33.3 g/dL (32.0-36.0); Mean Corpuscular Hemoglobin 32.4 pg (27.0-31.0); Mean Corpuscular Volume 97.2 fL (78.0-98.0); Mean Platelet Volume 11.9 fL (7.4-10.4); Platelet Count 76 10x3/uL (130-400); RBC Distribution Width 13.3 % (11.5-14.5); Red Blood Cell (RBC) Count 3.92 mill/uL (4.20-5.40)
[2023-11-12] MEDS: Senokot S 8.6-50 MG TAB PO SCH (12:41)
[2023-11-13 05:31] LABS: #Basophils Less than 0.03 10x3/uL (0.0-0.2); %Basophils 0.4 % (0.0-1.0); %Eosinophils 1.3 % (0.0-10.0); %Lymphocytes 44.3 % (21.0-51.0); %Monocytes 10.1 % (0.0-10.0); %Neutrophils 43.5 % (42.0-75.0); Hematocrit 38.1 % (36.0-47.0); Hemoglobin 12.7 g/dL (12.0-16.0); Mean Corpuscular HGB CONC 33.3 g/dL (32.0-36.0); Mean Corpuscular Hemoglobin 31.7 pg (27.0-31.0); Mean Platelet Volume 12.3 fL (7.4-10.4); Platelet Count 71 10x3/uL (130-400); RBC Distribution Width 13.3 % (11.5-14.5); Red Blood Cell (RBC) Count 4.01 mill/uL (4.20-5.40)
[2023-11-13 05:40] LABS: Anion Gap 12 mmol/L (10-20); BUN (Urea Nitrogen) 21 mg/dL (9.8-20.1); Calc. Creatinine Clearance 47 mL/min (70-130); Calcium 8.2 mg/dL (7.8-10.44); Carbon Dioxide 23 mmol/L (23-31); Chloride 109 mmol/L (98-107); Estimated GFR 59; Glucose 144 mg/dL (83-110); Potassium 4.2 mmol/L (3.5-5.1); Sodium 140 mmol/L (136-145)
[2023-11-13] MEDS ORDERED: Senokot S 8.6-50 MG TAB PO SCH (21:00)
[2023-11-13] MEDS: Senokot S 8.6-50 MG TAB PO SCH (22:25)
[2023-11-14] MEDS: Polyethylene Glycol 3350 17 GM Packet PO SCH (11:37)
[2023-11-14] MEDS ORDERED: HYDROcodone/Acetaminophen 5/325 mg Tablet PO PRN ×2 (12:16)
[2023-11-14 12:48] VITALS: BMI 25.5
[2023-11-14] MEDS: Mineral Oil ENEMA PR SCH (13:31)
[2023-11-14 16:48] VITALS: BP 130/66; TEMP 98.4
[2023-11-15] MEDS ORDERED: Polyethylene Glycol 3350 17 GM Packet PO SCH (09:00)
== END 2023-11-14 18:00 | DRG 69 ==
LOC: ERS 18:09 → ERHOLD 22:16 → 2SE 11-07 14:51 → OBSVTOIN 11-07 16:10
PROVIDERS: ADMIT Internal Medicine; ATTEND Emergency Medicine
PROC: 4A00X4Z Measurement of Central Nervous Electrical Activity, External Approach (ICD-10-PCS; principal; 2023-11-07)
DX: G45.9 Transient cerebral ischemic attack, unspecified (principal); G93.41 Metabolic encephalopathy; E87.20 Acidosis, unspecified; N17.9 Acute kidney failure, unspecified; I50.32 Chronic diastolic (congestive) heart failure; E11.22 Type 2 diabetes mellitus with diabetic chronic kidney disease; N18.9 Chronic kidney disease, unspecified; D69.6 Thrombocytopenia, unspecified; I25.10 Atherosclerotic heart disease of native coronary artery without angina pectoris; Z88.5 Allergy status to narcotic agent; Z88.8 Allergy status to other drugs, medicaments and biological substances; Z79.899 Other long term (current) drug therapy; Z79.4 Long term (current) use of insulin; Z90.49 Acquired absence of other specified parts of digestive tract; Z90.710 Acquired absence of both cervix and uterus; Z98.890 Other specified postprocedural states; Z87.891 Personal history of nicotine dependence; Z66 Do not resuscitate; K74.60 Unspecified cirrhosis of liver; M54.50 Low back pain, unspecified; K59.00 Constipation, unspecified
CPT/HCPCS: 36415; 36416; 70450; 70551; 71045; 72148; 80048; 80053; 81001; 82550; 83036; 83605; 83690; 83735; 84484; 85025; 87040; 93005; 94640; 95700; 95711; 95819; 96361; 96365; 96366; 96367; 96375; J0692; J1815; J2272; J3370; J3490; J7120; J7611; J7999

== ENCOUNTER 2024-07-01 15:28 | Emergency (ER) | payer OTHER, MEDICARE ==
[2024-07-01] MEDS ORDERED: Boostrix 0.5 ML (Tdap) VIAL (>/=7 yrs of age) ONE (17:46)
[2024-07-01] MEDS ORDERED: Acetaminophen 500 MG TAB ONE (17:46)
[2024-07-01] MEDS ORDERED: Bacitracin 1 PK ONE (18:22)
[2024-07-01] MEDS ORDERED: cloNIDine 0.1 MG TAB ONE (18:22)
== END 2024-07-01 19:15 | disposition home or self-care (01) ==
LOC: ERS 15:28
DX: S81.812A Laceration without foreign body, left lower leg, initial encounter (principal); I10 Essential (primary) hypertension; Z23 Encounter for immunization; E11.9 Type 2 diabetes mellitus without complications; W23.2XXA Caught, crushed, jammed or pinched between a moving and stationary object, initial encounter
CPT/HCPCS: 12001; 90471; 90715

== ENCOUNTER 2025-05-31 07:21 | Emergency (ER) | payer OTHER ==
[2025-05-31 07:34] LABS: #Basophils Less than 0.03 10x3/uL (0.0-0.2); #Eosinophils 0.07 10x3/uL (0.0-0.7); #Monocytes 0.50 10x3/uL (0.11-0.59); #Neutrophils 3.95 10x3/uL (1.40-6.50); %Basophils 0.3 % (0.0-1.0); %Eosinophils 1.0 % (0.0-10.0); %Lymphocytes 36.2 % (21.0-51.0); %Monocytes 7.0 % (0.0-10.0); %Neutrophils 55.2 % (42.0-75.0); Hematocrit 37.3 % (36.0-47.0); Hemoglobin 12.1 g/dL (12.0-16.0); Mean Corpuscular Hemoglobin 31.1 pg (27.0-31.0); Mean Corpuscular Volume 95.9 fL (78.0-98.0); Platelet Count 131 10x3/uL (130-400); Red Blood Cell (RBC) Count 3.89 mill/uL (4.20-5.40); White Blood Cell (WBC) Count 7.15 10x3/uL (4.8-10.8)
[2025-05-31 08:00] LABS: ALT (SGPT) 30 U/L (Less than 34); AST (SGOT) 72 U/L (11-34); Albumin 2.6 g/dL (3.1-4.5); Alkaline Phosphatase 261 U/L (40-110); Anion Gap 16 mmol/L (10-20); BUN (Urea Nitrogen) 15 mg/dL (9.8-20.1); Bilirubin, Total 1.9 mg/dL (0.3-1.2); Calc. Creatinine Clearance 0 mL/min (70-130); Calcium 8.7 mg/dL (7.8-10.44); Carbon Dioxide 23 mmol/L (23-31); Chloride 107 mmol/L (98-107); Globulin 3.9 g/dL (2.4-3.5); Glucose 129 mg/dL (83-110); Potassium 4.0 mmol/L (3.5-5.1); Sodium 142 mmol/L (136-145)
[2025-05-31] MEDS ORDERED: Iopamidol 370 76% 100 ML VIAL ONE (12:00)
== END 2025-05-31 10:50 | disposition home or self-care (01) ==
LOC: ERS 07:21
DX: R10.11 Right upper quadrant pain (principal); R10.13 Epigastric pain; K74.60 Unspecified cirrhosis of liver; R16.0 Hepatomegaly, not elsewhere classified; R18.8 Other ascites; I10 Essential (primary) hypertension; E11.40 Type 2 diabetes mellitus with diabetic neuropathy, unspecified; Z79.899 Other long term (current) drug therapy
CPT/HCPCS: 71045; 74177; 80053; 83690; 84484; 85025; 93005; Q9967

== ENCOUNTER 2025-06-11 09:20 | Outpatient (CLI) | payer OTHER ==
[2025-06-11] MEDS ORDERED: Iopamidol 370 76% 100 ML VIAL ONE (09:23)
== END 2025-06-11 09:21 | disposition home or self-care (01) ==
LOC: CT 09:20
PROVIDERS: ATTEND Internal Medicine Hematology & Oncology
DX: C22.0 Liver cell carcinoma (principal); K74.69 Other cirrhosis of liver; D69.59 Other secondary thrombocytopenia; R91.8 Other nonspecific abnormal finding of lung field; I85.00 Esophageal varices without bleeding; R18.8 Other ascites; R16.0 Hepatomegaly, not elsewhere classified
CPT/HCPCS: 71260; 74177; Q9967